=== PATIENT | male | born 1945 | race Caucasian/White ===

== ENCOUNTER 2024-01-22 09:56 | Emergency (ER) | payer BC, MEDICARE ==
[2024-01-22 10:50] LABS: HEMATOCRIT 32.9 % (42.0-52.0); HEMOGLOBIN 10.3 gm/dl (14.0-18.0); MEAN CORPUSCULAR HEMOGLOBIN 27.2 pg (28.0-32.0); MEAN CORPUSCULAR HGB CONC 31.3 g/dl (32.0-36.0); MEAN CORPUSCULAR VOLUME 86.8 fl (83.0-99.0); NRBC ABSOLUTE 2.43 (0.00-0.02); NRBC PERCENT 3.9 % (0.0-0.2); PLATELET COUNT,PLT 35 K/mm3 (150-400); RED BLOOD CELL COUNT 3.79 M/mm3 (4.52-5.90)
[2024-01-22 10:51] LABS: WHITE BLOOD CELL COUNT,WBC 62.86 K/mm3 (3.9-11.3)
[2024-01-22 11:06] LABS: A/G RATIO 0.9 (1-2); ALBUMIN 3.3 g/dl (3.4-5.0); ANION GAP 15.4 (5-15); BILIRUBIN TOTAL 0.8 mg/dL (0.2-1.0); BUN/CREATININE RATIO 21.8 (14-18); CALCIUM 8.8 mg/dL (8.5-10.1); CREATININE 1.1 mg/dL (0.7-1.3); EST CRCL DRUG DOSING (CG) 64.66 mL/min; POTASSIUM,K 4.4 mEq/L (3.5-5.1)
[2024-01-22] MEDS: Sodium Chloride 0.9% 10 ML Syringe FLUSH PRN (11:07)
[2024-01-22 11:12] LABS: BAND PERCENT MAN 12 % (0-10); BASOPHILS PERCENT MAN 1 (0.2-1.2); BLASTS PERCENT MAN 3; EOSINOPHILS PERCENT MAN 1 % (0.8-7.0); LYMPHOCYTES % ATYPICAL MANUAL 0 %; LYMPHOCYTES PERCENT MAN 7 % (20-40); METAMYELOCYTE PERCENT MAN 10; MONOCYTES PERCENT MAN 4 % (2-10); MYELOCYTE PERCENT MAN 18; PROMYELOCYTE PERCENT MAN 4
[2024-01-22 11:16] LABS: ANISOCYTOSIS 2+ MODERATE; OVALOCYTES 1+ SLIGHT; PLATELET COUNT ESTIMATE DECREASED; POLYCHROMASIA 1+ SLIGHT
[2024-01-22] MEDS: Iopamidol 755 Mg/ML 100 ML Bottle IVPUSH ONE (11:16)
[2024-01-22] MEDS: Sodium Chloride 0.9% 100 ML IV SCH (11:16)
== END 2024-01-22 12:58 | disposition home or self-care (01) ==
LOC: JD.ED 09:56
DX: R06.02 Shortness of breath (principal); Z88.6 Allergy status to analgesic agent; Z79.899 Other long term (current) drug therapy
CPT/HCPCS: 36415; 71045; 71275; 80053; 83880; 84484; 85007; 85027; 93005; 99285; J3490; Q9967

== ENCOUNTER 2024-09-06 09:29 | Emergency (ER) | payer MEDICARE ==
[2024-09-06 10:57] LABS: BASOPHILS PERCENT AUTO 0.9 % (0.0-1.0); EOSINOPHILS ABSOLUTE AUTO 1.2 K/mm3 (0.0-0.4); HEMATOCRIT 42.8 % (42.0-52.0); IMMATURE GRAN ABSOLUTE AUTO 29.81 K/mm3 (0.00-0.05); IMMATURE GRAN PERCENT AUTO 25.6 % (0.0-0.4); LYMPHOCYTES ABSOLUTE AUTO 2.4 K/mm3 (1.0-4.8); MEAN CORPUSCULAR HEMOGLOBIN 25.3 pg (28.0-32.0); MEAN CORPUSCULAR HGB CONC 30.6 g/dl (32.0-36.0); MONOCYTES ABSOLUTE AUTO 5.2 K/mm3 (0.0-0.8); MONOCYTES PERCENT AUTO 4.5 % (0.0-8.0); NEUTROPHILS ABSOLUTE AUTO 77.1 K/mm3 (1.8-7.7); NRBC ABSOLUTE 0.92 (0.00-0.02); NRBC PERCENT 0.8 % (0.0-0.2); RED BLOOD CELL COUNT 5.17 M/mm3 (4.52-5.90)
[2024-09-06 11:04] LABS: WHITE BLOOD CELL COUNT,WBC 116.64 K/mm3 (3.9-11.3)
[2024-09-06 11:05] LABS: HEMOGLOBIN 13.1 gm/dl (14.0-18.0); MEAN CORPUSCULAR VOLUME 82.8 fl (83.0-99.0); PLATELET COUNT,PLT 21 K/mm3 (150-400)
[2024-09-06 11:07] LABS: INR 1.17; PROTHROMBIN TIME 12.3 SECONDS (9.7-12.0)
[2024-09-06 11:08] LABS: PTT,PARTIAL THROMBOPLSTIN TIME 29.9 SECONDS (21.7-31.4)
[2024-09-06 11:16] LABS: A/G RATIO 0.8 (1-2); ALBUMIN 2.9 g/dl (3.4-5.0); ANION GAP 12.2 (5-15); BILIRUBIN TOTAL 0.6 mg/dL (0.2-1.0); CALCIUM 8.7 mg/dL (8.5-10.1); CREATININE 1.2 mg/dL (0.7-1.3); EST CRCL DRUG DOSING (CG) 59.27 mL/min; POTASSIUM,K 5.2 mEq/L (3.5-5.1); PROTEIN TOTAL,TP 6.5 g/dl (6.4-8.2)
[2024-09-06 11:43] LABS: SLIDE REVIEW ABNORMAL SMEAR
== END 2024-09-06 13:41 | disposition home or self-care (01) ==
LOC: JD.ED 09:29
DX: I82.412 Acute embolism and thrombosis of left femoral vein (principal); Z88.8 Allergy status to other drugs, medicaments and biological substances
CPT/HCPCS: 36415; 73630-26-LT; 73630-LT; 80053; 85025; 85610; 85730; 93971-26-LT; 93971-LT; 99284

== ENCOUNTER 2025-01-10 16:11 | Inpatient (IN) | payer MEDICARE ==
[2025-01-10] MEDS: Sodium Chloride 0.9% 10 ML Syringe FLUSH PRN (16:40)
[2025-01-10] MEDS: Sodium Chloride 0.9% 1,000 ML IV SCH (17:05)
[2025-01-10 17:07] LABS: BASOPHILS ABSOLUTE AUTO 0.5 K/mm3 (0.0-0.2); BASOPHILS PERCENT AUTO 0.5 % (0.0-1.0); EOSINOPHILS ABSOLUTE AUTO 0.7 K/mm3 (0.0-0.4); EOSINOPHILS PERCENT AUTO 0.8 % (0.0-6.0); HEMATOCRIT 41.7 % (42.0-52.0); HEMOGLOBIN 12.8 gm/dl (14.0-18.0); IMMATURE GRAN ABSOLUTE AUTO 23.25 K/mm3 (0.00-0.05); IMMATURE GRAN PERCENT AUTO 25.5 % (0.0-0.4); LYMPHOCYTES ABSOLUTE AUTO 4.1 K/mm3 (1.0-4.8); LYMPHOCYTES PERCENT AUTO 4.5 % (24.0-44.0); MEAN CORPUSCULAR HEMOGLOBIN 24.9 pg (28.0-32.0); MEAN CORPUSCULAR HGB CONC 30.7 g/dl (32.0-36.0); MONOCYTES ABSOLUTE AUTO 3.7 K/mm3 (0.0-0.8); MONOCYTES PERCENT AUTO 4.1 % (0.0-8.0); NEUTROPHILS ABSOLUTE AUTO 58.9 K/mm3 (1.8-7.7); NEUTROPHILS PERCENT AUTO 64.6 % (41.0-71.0); NRBC ABSOLUTE 13.15 (0.00-0.02); NRBC PERCENT 14.4 % (0.0-0.2); PLATELET COUNT,PLT 35 K/mm3 (150-400); RED BLOOD CELL COUNT 5.15 M/mm3 (4.52-5.90)
[2025-01-10 17:25] LABS: WHITE BLOOD CELL COUNT,WBC 91.12 K/mm3 (3.9-11.3)
[2025-01-10] MEDS: Acetaminophen 325 MG Tab PO ONE (17:27)
[2025-01-10 17:32] LABS: LACTIC ACID 2.6 mmol/L (0.4-2.0)
[2025-01-10 17:36] LABS: A/G RATIO 0.8 (1-2); ALBUMIN 2.6 g/dl (3.4-5.0); BILIRUBIN TOTAL 2.6 mg/dL (0.2-1.0); BUN/CREATININE RATIO 13.3 (14-18); C-REACTIVE PROTEIN 2.92 mg/dL (<0.30); CREATININE 0.9 mg/dL (0.7-1.3); EST CRCL DRUG DOSING (CG) 77.69 mL/min; MAGNESIUM 1.6 mg/dL (1.8-2.4); PROTEIN TOTAL,TP 5.8 g/dl (6.4-8.2)
[2025-01-10 17:59] LABS: CORONAVIRUS COVID-19 NAA NEGATIVE (NEGATIVE); INFLUENZA A NAA NEGATIVE (NEGATIVE); RESPIRATORY SYNCYTIAL VIR NAA NEGATIVE (NEGATIVE)
[2025-01-10] MEDS: Iopamidol 612 MG/ML 100 ML Bottle IVPUSH ONE (18:29)
[2025-01-10] MEDS: Piperacillin/Tazobactam 4.5 GM in Sodium Chloride 0.9% 100 ML IV ONE (18:43)
[2025-01-10 20:09] LABS: APPEARANCE,URINE CLEAR (Clear); BILIRUBIN,URINE 1+ (Negative); COLOR,URINE YELLOW (Yellow); GLUCOSE,URINE NEGATIVE (Negative); KETONES,URINE NEGATIVE (Negative); LEUKOCYTE ESTERASE,URINE NEGATIVE (Negative); NITRITE,URINE NEGATIVE (Negative); OCCULT BLOOD,URINE NEGATIVE (Negative); PROTEIN,URINE 1+ (Negative); UROBILINOGEN,URINE 0.2 (0.2-1.0)
[2025-01-10 20:39] LABS: AMORPHOUS SEDIMENT,URINE RARE /hpf (NOT SEEN); BACTERIA,URINE FEW /hpf (FEW); EPITHELIAL CELLS,URINE 0-5 /hpf (0-5); MUCUS,URINE FEW /hpf (FEW); RBC,URINE 0-5 /hpf (0-5); WBC,URINE 0-5 /hpf (0-5)
[2025-01-10] MEDS: Ondansetron 4 MG/2 ML SDV IVPUSH ONE (20:55)
[2025-01-10] MEDS: Tamsulosin 0.4 MG Cap.ER PO ONE (20:55)
[2025-01-10] MEDS: Piperacillin/Tazobactam 4.5 GM in Sodium Chloride 0.9% 100 ML IV SCH ×2 (23:21→23:44)
[2025-01-11] MEDS ORDERED: Piperacillin/Tazobactam 4.5 GM in Sodium Chloride 0.9% 100 ML IV SCH (02:30)
[2025-01-11 04:41] LABS: BASOPHILS ABSOLUTE AUTO 0.4 K/mm3 (0.0-0.2); BASOPHILS PERCENT AUTO 0.7 % (0.0-1.0); EOSINOPHILS ABSOLUTE AUTO 0.4 K/mm3 (0.0-0.4); EOSINOPHILS PERCENT AUTO 0.7 % (0.0-6.0); HEMATOCRIT 31.6 % (42.0-52.0); HEMOGLOBIN 9.7 gm/dl (14.0-18.0); IMMATURE GRAN PERCENT AUTO 21.4 % (0.0-0.4); LYMPHOCYTES ABSOLUTE AUTO 2.5 K/mm3 (1.0-4.8); LYMPHOCYTES PERCENT AUTO 4.7 % (24.0-44.0); MEAN CORPUSCULAR HEMOGLOBIN 24.8 pg (28.0-32.0); MEAN CORPUSCULAR HGB CONC 30.7 g/dl (32.0-36.0); MEAN CORPUSCULAR VOLUME 80.8 fl (83.0-99.0); MONOCYTES ABSOLUTE AUTO 3.6 K/mm3 (0.0-0.8); MONOCYTES PERCENT AUTO 6.7 % (0.0-8.0); NEUTROPHILS ABSOLUTE AUTO 35.5 K/mm3 (1.8-7.7); NEUTROPHILS PERCENT AUTO 65.8 % (41.0-71.0); NRBC ABSOLUTE 4.76 (0.00-0.02); NRBC PERCENT 8.8 % (0.0-0.2); RED BLOOD CELL COUNT 3.91 M/mm3 (4.52-5.90)
[2025-01-11 05:32] LABS: A/G RATIO 0.8 (1-2); ALBUMIN 2.1 g/dl (3.4-5.0); ANION GAP 11.7 (5-15); BILIRUBIN TOTAL 2.3 mg/dL (0.2-1.0); BUN/CREATININE RATIO 15.6 (14-18); CALCIUM 7.9 mg/dL (8.5-10.1); CREATININE 0.9 mg/dL (0.7-1.3); EST CRCL DRUG DOSING (CG) 77.69 mL/min; POTASSIUM,K 3.7 mEq/L (3.5-5.1); PROTEIN TOTAL,TP 4.8 g/dl (6.4-8.2)
[2025-01-11 06:56] LABS: PLATELET COUNT,PLT 24 K/mm3 (150-400); WHITE BLOOD CELL COUNT,WBC 53.85 K/mm3 (3.9-11.3)
[2025-01-11 07:45] LABS: SLIDE REVIEW ABNORMAL SMEAR
[2025-01-11] MEDS: Furosemide 40 MG/4 ML VIAL IVPUSH ONE (10:07)
[2025-01-11] MEDS ORDERED: Acetaminophen 325 MG Tab PO PRN (10:14)
[2025-01-11] MEDS ORDERED: Ondansetron 4 MG/2 ML SDV IVPUSH PRN (10:15)
[2025-01-12 04:47] LABS: BASOPHILS ABSOLUTE AUTO 1.4 K/mm3 (0.0-0.2); BASOPHILS PERCENT AUTO 2.1 % (0.0-1.0); EOSINOPHILS ABSOLUTE AUTO 0.6 K/mm3 (0.0-0.4); EOSINOPHILS PERCENT AUTO 0.9 % (0.0-6.0); HEMATOCRIT 35.9 % (42.0-52.0); HEMOGLOBIN 10.8 gm/dl (14.0-18.0); IMMATURE GRAN ABSOLUTE AUTO 15.57 K/mm3 (0.00-0.05); IMMATURE GRAN PERCENT AUTO 23.9 % (0.0-0.4); LYMPHOCYTES ABSOLUTE AUTO 3.3 K/mm3 (1.0-4.8); LYMPHOCYTES PERCENT AUTO 5.1 % (24.0-44.0); MEAN CORPUSCULAR HEMOGLOBIN 24.2 pg (28.0-32.0); MEAN CORPUSCULAR HGB CONC 30.1 g/dl (32.0-36.0); MEAN CORPUSCULAR VOLUME 80.5 fl (83.0-99.0); MONOCYTES ABSOLUTE AUTO 3.1 K/mm3 (0.0-0.8); MONOCYTES PERCENT AUTO 4.8 % (0.0-8.0); NEUTROPHILS ABSOLUTE AUTO 41.3 K/mm3 (1.8-7.7); NEUTROPHILS PERCENT AUTO 63.2 % (41.0-71.0); NRBC ABSOLUTE 5.11 (0.00-0.02); NRBC PERCENT 7.8 % (0.0-0.2); PLATELET COUNT,PLT 26 K/mm3 (150-400); RED BLOOD CELL COUNT 4.46 M/mm3 (4.52-5.90)
[2025-01-12 05:18] LABS: A/G RATIO 0.9 (1-2); ALBUMIN 2.4 g/dl (3.4-5.0); ANION GAP 12.6 (5-15); BILIRUBIN TOTAL 2.6 mg/dL (0.2-1.0); CALCIUM 7.9 mg/dL (8.5-10.1); EST CRCL DRUG DOSING (CG) 69.92 mL/min; MAGNESIUM 1.7 mg/dL (1.8-2.4); POTASSIUM,K 3.6 mEq/L (3.5-5.1); PROTEIN TOTAL,TP 5.2 g/dl (6.4-8.2)
[2025-01-12] MEDS: Loperamide 2 MG Cap PO PRN (05:22)
[2025-01-12 06:10] LABS: WHITE BLOOD CELL COUNT,WBC 65.25 K/mm3 (3.9-11.3)
[2025-01-12 07:37] LABS: SLIDE REVIEW ABNORMAL SMEAR
[2025-01-12] MEDS: Magnesium Sulf/Wat 2 GM/50 mL 2 GM/50 ML BAG IV SCH (07:39)
[2025-01-12] MEDS ORDERED: Finasteride 5 MG Tab PO SCH (21:00)
[2025-01-12] MEDS ORDERED: Tamsulosin 0.4 MG Cap.ER PO SCH (21:00)
== END 2025-01-12 14:59 | disposition home or self-care (01) | DRG 864 ==
LOC: JD.ED 16:11 → JD.MS 20:28
PROVIDERS: ADMIT Internal Medicine; ATTEND Internal Medicine
DX: R50.9 Fever, unspecified (principal); D84.9 Immunodeficiency, unspecified; D75.81 Myelofibrosis; D69.6 Thrombocytopenia, unspecified; N40.0 Benign prostatic hyperplasia without lower urinary tract symptoms; R16.1 Splenomegaly, not elsewhere classified; Z66 Do not resuscitate; I10 Essential (primary) hypertension; D64.9 Anemia, unspecified; K80.20 Calculus of gallbladder without cholecystitis without obstruction; M19.90 Unspecified osteoarthritis, unspecified site; N20.0 Calculus of kidney; Z85.6 Personal history of leukemia; Z90.49 Acquired absence of other specified parts of digestive tract; Z98.890 Other specified postprocedural states; Z96.649 Presence of unspecified artificial hip joint; R19.7 Diarrhea, unspecified; Z79.899 Other long term (current) drug therapy; Z86.718 Personal history of other venous thrombosis and embolism; Z88.6 Allergy status to analgesic agent; Z88.8 Allergy status to other drugs, medicaments and biological substances
CPT/HCPCS: 0241U; 36415; 71045; 74177; 76705; 80053; 81001; 83605; 83690; 83735; 83880; 85025; 86140; 86850; 86900; 86901; 87040; 93005; 93306; 96361; 96365; 97110; 97116; 97161; 97530; 99285; 93010; 99284; A9270-GY; J1940; J2405; J2543; J3475; J7030; Q9967

== ENCOUNTER 2025-02-06 15:00 | Inpatient (IN) | payer MEDICARE ==
[2025-02-06 16:23] LABS: HEMATOCRIT 43.5 % (42.0-52.0); HEMOGLOBIN 12.5 gm/dl (14.0-18.0); MEAN CORPUSCULAR HEMOGLOBIN 24.9 pg (28.0-32.0); MEAN CORPUSCULAR HGB CONC 28.7 g/dl (32.0-36.0); MEAN CORPUSCULAR VOLUME 86.5 fl (83.0-99.0); NRBC ABSOLUTE 19.66 (0.00-0.02); NRBC PERCENT 13.3 % (0.0-0.2); PLATELET COUNT,PLT 33 K/mm3 (150-400); RED BLOOD CELL COUNT 5.03 M/mm3 (4.52-5.90)
[2025-02-06 16:45] LABS: APPEARANCE,URINE SLT CLOUDY (Clear); BILIRUBIN,URINE 1+ (Negative); COLOR,URINE AMBER (Yellow); GLUCOSE,URINE NEGATIVE (Negative); KETONES,URINE NEGATIVE (Negative); LEUKOCYTE ESTERASE,URINE 2+ (Negative); NITRITE,URINE POSITIVE (Negative); OCCULT BLOOD,URINE 2+ (Negative); PH,URINE 5.5 (5.0-8.0); PROTEIN,URINE 1+ (Negative); UROBILINOGEN,URINE 0.2 (0.2-1.0)
[2025-02-06 16:57] LABS: WHITE BLOOD CELL COUNT,WBC 148.23 K/mm3 (3.9-11.3)
[2025-02-06 17:05] LABS: A/G RATIO 0.8 (1-2); ALANINE AMINOTRANSFERASE,ALT 24 U/L (16-63); ALBUMIN 2.4 g/dl (3.4-5.0); ALKALINE PHOSPHATASE 296 U/L (46-116); ANION GAP 13.7 (5-15); ASPARTATE AMNIOTRANSFERASE,AST 56 U/L (15-37); BLOOD UREA NITROGEN,BUN 20 mg/dL (7-18); BUN/CREATININE RATIO 18.2 (14-18); CARBON DIOXIDE,CO2 22 mEq/L (21-32); CHLORIDE,CL 107 mEq/L (98-107); CREATININE 1.1 mg/dL (0.7-1.3); EST CRCL DRUG DOSING (CG) 63.57 mL/min; ESTIMATED GFR 67 mL/min (>60); GLUCOSE RANDOM 106 mg/dL (70-99); LIPASE 13 U/L (16-77); POTASSIUM,K 3.7 mEq/L (3.5-5.1); PROTEIN TOTAL,TP 5.3 g/dl (6.4-8.2); SODIUM,NA 139 mEq/L (136-145)
[2025-02-06 17:14] LABS: CALCIUM 8.2 mg/dL (8.5-10.1)
[2025-02-06] MEDS ORDERED: Metoprolol Tartrate 5 MG/5 ML SDV IVPUSH PRN (17:14)
[2025-02-06] MEDS ORDERED: Ondansetron 4 MG/2 ML SDV IV PRN (17:16)
[2025-02-06] MEDS ORDERED: Sennosides/Docusate Sodium 50-8.6 MG Tab PO PRN (17:16)
[2025-02-06] MEDS ORDERED: Morphine 2 MG/ML SYRINGE IVPUSH PRN (17:16)
[2025-02-06] MEDS ORDERED: oxyCODONE 5 MG Tab PO PRN (17:16)
[2025-02-06 17:22] LABS: WBC,URINE 30-40 /hpf (0-5)
[2025-02-06 17:23] LABS: BACTERIA,URINE MODERATE /hpf (FEW); MUCUS,URINE MODERATE /hpf (FEW); WAXY CASTS,URINE 0-5 /lpf (0-5); WBC CLUMPS,URINE MODERATE /hpf (NOT SEEN)
[2025-02-06] MEDS: Piperacillin/Tazobactam 4.5 GM in Sodium Chloride 0.9% 100 ML IV ONE ×2 (17:23→19:50)
[2025-02-06] MEDS: VANCOmycin 2 GM/400 ML 2 GM in Premix Bag 1 BAG IV ONE (17:28)
[2025-02-06 17:29] LABS: TROPONIN I HIGH SENSITIVITY < 4 pg/mL (<=76)
[2025-02-06 17:32] LABS: C-REACTIVE PROTEIN 2.25 mg/dL (<0.30)
[2025-02-06] MEDS ORDERED: LORazepam 2 MG/ML SDV IVPUSH PRN (17:33)
[2025-02-06] MEDS ORDERED: 50% Dextrose in Water 50 ML Syringe IVPUSH PRN (17:35)
[2025-02-06 17:52] LABS: BAND PERCENT MAN 23 % (0-10); LYMPHOCYTES PERCENT MAN 4 % (20-40)
[2025-02-06 17:53] LABS: BASOPHILS PERCENT MAN 4 (0.2-1.2); EOSINOPHILS PERCENT MAN 1 % (0.8-7.0)
[2025-02-06 17:54] LABS: ANISOCYTOSIS 2+ MODERATE; GIANT PLATELETS FEW; MONOCYTES PERCENT MAN 6 % (2-10); PLATELET COUNT ESTIMATE MARKED DEC; POIKILOCYTOSIS 2+ MODERATE
[2025-02-06] MEDS: Sodium Chloride 0.9% 1,000 ML IV ONE (18:00)
[2025-02-06] MEDS: VANCOmycin 1.75 GM/350 ML 1.75 GM in Premix Bag 1 BAG IV ONE (19:50)
[2025-02-06 20:27] LABS: LACTIC ACID 2.3 mmol/L (0.4-2.0)
[2025-02-06] MEDS: Tamsulosin 0.4 MG Cap.ER PO SCH (21:05)
[2025-02-06] MEDS: Finasteride 5 MG Tab PO SCH (21:05)
[2025-02-06] MEDS: Famotidine 20 MG/2 ML SDV IVPUSH SCH (21:06)
[2025-02-06] MEDS: Potassium Chloride 20 MEQ Tab.ER PO ONE (21:06)
[2025-02-06] MEDS: Piperacillin/Tazobactam 4.5 GM in Sodium Chloride 0.9% 100 ML IV SCH (23:09)
[2025-02-06] MEDS: Insulin Lispro 100 Unit/ML 3 ML KwikPen SUBCUT SCH (23:09)
[2025-02-07] MEDS: Fluconazole/Normal Saline 200 MG in Premix Bag 1 BAG IV ONE (01:15)
[2025-02-07] MEDS: Sodium Chloride 0.9% 3,000 ML IV ONE (01:15)
[2025-02-07] MEDS: VANCOmycin 1.5 GM/300 ML 1.5 GM in Premix Bag 1 BAG IV SCH (04:20)
[2025-02-07 04:38] LABS: BASOPHILS ABSOLUTE AUTO 2.9 K/mm3 (0.0-0.2); BASOPHILS PERCENT AUTO 2.3 % (0.0-1.0); EOSINOPHILS PERCENT AUTO 1.6 % (0.0-6.0); HEMATOCRIT 38.3 % (42.0-52.0); HEMOGLOBIN 11.2 gm/dl (14.0-18.0); IMMATURE GRAN ABSOLUTE AUTO 30.86 K/mm3 (0.00-0.05); IMMATURE GRAN PERCENT AUTO 24.4 % (0.0-0.4); LYMPHOCYTES PERCENT AUTO 3.9 % (24.0-44.0); MEAN CORPUSCULAR HEMOGLOBIN 24.7 pg (28.0-32.0); MEAN CORPUSCULAR HGB CONC 29.2 g/dl (32.0-36.0); MEAN CORPUSCULAR VOLUME 84.4 fl (83.0-99.0); MONOCYTES ABSOLUTE AUTO 8.2 K/mm3 (0.0-0.8); MONOCYTES PERCENT AUTO 6.5 % (0.0-8.0); NEUTROPHILS ABSOLUTE AUTO 77.5 K/mm3 (1.8-7.7); NEUTROPHILS PERCENT AUTO 61.3 % (41.0-71.0); NRBC ABSOLUTE 16.56 (0.00-0.02); NRBC PERCENT 13.1 % (0.0-0.2); RED BLOOD CELL COUNT 4.54 M/mm3 (4.52-5.90)
[2025-02-07 05:11] LABS: A/G RATIO 0.8 (1-2); ANION GAP 12.3 (5-15); BUN/CREATININE RATIO 17.3 (14-18); C-REACTIVE PROTEIN 2.07 mg/dL (<0.30); CALCIUM 7.8 mg/dL (8.5-10.1); CREATININE 1.1 mg/dL (0.7-1.3); EST CRCL DRUG DOSING (CG) 63.57 mL/min; MAGNESIUM 1.8 mg/dL (1.8-2.4); PHOSPHORUS 2.9 mg/dL (2.6-4.7); POTASSIUM,K 4.3 mEq/L (3.5-5.1); PROTEIN TOTAL,TP 4.5 g/dl (6.4-8.2)
[2025-02-07 05:22] LABS: INR 1.47; PROTHROMBIN TIME 15.2 SECONDS (9.7-12.0)
[2025-02-07 06:10] LABS: PLATELET COUNT,PLT 25 K/mm3 (150-400); WHITE BLOOD CELL COUNT,WBC 126.45 K/mm3 (3.9-11.3)
[2025-02-07 06:51] LABS: SLIDE REVIEW ABNORMAL SMEAR
[2025-02-07] MEDS: Magnesium Sulfat/D5W 1GM/100ML 1 GM in Premix Bag 1 BAG IV ONE (11:14)
[2025-02-07] MEDS: Furosemide 20 MG/2 ML VIAL IVPUSH ONE (11:24)
[2025-02-07] MEDS: Sodium Phosphate 30 MMOLE in Sodium Chloride 0.9% 250 ML IV ONE (11:24)
[2025-02-07] MEDS: Loperamide 2 MG Cap PO ONE (15:11)
[2025-02-07] MEDS ORDERED: Meloxicam 7.5 MG Tab PO PRN (17:35)
[2025-02-07] MEDS: Melatonin 3 MG Tab PO SCH (20:08)
[2025-02-08 05:00] LABS: BASOPHILS ABSOLUTE AUTO 3.1 K/mm3 (0.0-0.2); BASOPHILS PERCENT AUTO 2.3 % (0.0-1.0); EOSINOPHILS ABSOLUTE AUTO 1.7 K/mm3 (0.0-0.4); EOSINOPHILS PERCENT AUTO 1.3 % (0.0-6.0); HEMATOCRIT 36.7 % (42.0-52.0); HEMOGLOBIN 10.7 gm/dl (14.0-18.0); IMMATURE GRAN ABSOLUTE AUTO 32.34 K/mm3 (0.00-0.05); IMMATURE GRAN PERCENT AUTO 24.1 % (0.0-0.4); LYMPHOCYTES PERCENT AUTO 4.5 % (24.0-44.0); MEAN CORPUSCULAR HEMOGLOBIN 25.1 pg (28.0-32.0); MEAN CORPUSCULAR HGB CONC 29.2 g/dl (32.0-36.0); MEAN CORPUSCULAR VOLUME 86.2 fl (83.0-99.0); MONOCYTES ABSOLUTE AUTO 7.1 K/mm3 (0.0-0.8); MONOCYTES PERCENT AUTO 5.3 % (0.0-8.0); NEUTROPHILS PERCENT AUTO 62.5 % (41.0-71.0); NRBC ABSOLUTE 16.98 (0.00-0.02); NRBC PERCENT 12.7 % (0.0-0.2); RED BLOOD CELL COUNT 4.26 M/mm3 (4.52-5.90)
[2025-02-08 05:33] LABS: WHITE BLOOD CELL COUNT,WBC 134.18 K/mm3 (3.9-11.3)
[2025-02-08 05:34] LABS: PLATELET COUNT,PLT 25 K/mm3 (150-400)
[2025-02-08 05:36] LABS: A/G RATIO 0.8 (1-2); ALBUMIN 1.9 g/dl (3.4-5.0); ANION GAP 11.5 (5-15); BILIRUBIN TOTAL 2.8 mg/dL (0.2-1.0); BUN/CREATININE RATIO 16.7 (14-18); C-REACTIVE PROTEIN 1.94 mg/dL (<0.30); CALCIUM 7.6 mg/dL (8.5-10.1); CREATININE 1.2 mg/dL (0.7-1.3); EST CRCL DRUG DOSING (CG) 58.27 mL/min; PHOSPHORUS 3.8 mg/dL (2.6-4.7); POTASSIUM,K 3.5 mEq/L (3.5-5.1); PROTEIN TOTAL,TP 4.4 g/dl (6.4-8.2)
[2025-02-08 05:39] LABS: SLIDE REVIEW ABNORMAL SMEAR
[2025-02-08] MEDS: Furosemide 40 MG/4 ML VIAL IVPUSH ONE (12:40)
[2025-02-08] MEDS: Loperamide 2 MG Cap PO PRN (12:57)
[2025-02-09] MEDS: Furosemide 40 MG/4 ML VIAL IVPUSH ONE (09:06)
[2025-02-09 09:10] LABS: BASOPHILS ABSOLUTE AUTO 4.8 K/mm3 (0.0-0.2); BASOPHILS PERCENT AUTO 2.9 % (0.0-1.0); EOSINOPHILS ABSOLUTE AUTO 29.6 K/mm3 (0.0-0.4); EOSINOPHILS PERCENT AUTO 17.8 % (0.0-6.0); HEMOGLOBIN 12.1 gm/dl (14.0-18.0); IMMATURE GRAN ABSOLUTE AUTO 36.23 K/mm3 (0.00-0.05); IMMATURE GRAN PERCENT AUTO 21.8 % (0.0-0.4); LYMPHOCYTES ABSOLUTE AUTO 6.9 K/mm3 (1.0-4.8); LYMPHOCYTES PERCENT AUTO 4.1 % (24.0-44.0); MEAN CORPUSCULAR HEMOGLOBIN 25.5 pg (28.0-32.0); MEAN CORPUSCULAR HGB CONC 29.5 g/dl (32.0-36.0); MEAN CORPUSCULAR VOLUME 86.3 fl (83.0-99.0); MONOCYTES ABSOLUTE AUTO 11.1 K/mm3 (0.0-0.8); MONOCYTES PERCENT AUTO 6.7 % (0.0-8.0); NEUTROPHILS ABSOLUTE AUTO 77.8 K/mm3 (1.8-7.7); NEUTROPHILS PERCENT AUTO 46.7 % (41.0-71.0); NRBC PERCENT 12.7 % (0.0-0.2); PLATELET COUNT,PLT 30 K/mm3 (150-400); RED BLOOD CELL COUNT 4.75 M/mm3 (4.52-5.90)
[2025-02-09 09:13] LABS: WHITE BLOOD CELL COUNT,WBC 166.35 K/mm3 (3.9-11.3)
[2025-02-09 09:40] LABS: A/G RATIO 0.7 (1-2); ALBUMIN 2.1 g/dl (3.4-5.0); BILIRUBIN TOTAL 2.9 mg/dL (0.2-1.0); BUN/CREATININE RATIO 14.6 (14-18); CREATININE 1.3 mg/dL (0.7-1.3); EST CRCL DRUG DOSING (CG) 53.79 mL/min
[2025-02-09 09:49] LABS: SLIDE REVIEW ABNORMAL SMEAR
[2025-02-09] MEDS: cefTRIAXone 1 GM Vial IVPUSH SCH (16:35)
[2025-02-09] MEDS: Acetaminophen 325 MG Tab PO PRN (20:23)
[2025-02-10] MEDS: Furosemide 40 MG Tab PO SCH (08:26)
[2025-02-10 08:38] LABS: BASOPHILS ABSOLUTE AUTO 4.5 K/mm3 (0.0-0.2); BASOPHILS PERCENT AUTO 2.9 % (0.0-1.0); EOSINOPHILS PERCENT AUTO 1.3 % (0.0-6.0); HEMATOCRIT 40.3 % (42.0-52.0); HEMOGLOBIN 11.6 gm/dl (14.0-18.0); IMMATURE GRAN ABSOLUTE AUTO 36.56 K/mm3 (0.00-0.05); IMMATURE GRAN PERCENT AUTO 23.3 % (0.0-0.4); LYMPHOCYTES ABSOLUTE AUTO 6.7 K/mm3 (1.0-4.8); LYMPHOCYTES PERCENT AUTO 4.3 % (24.0-44.0); MEAN CORPUSCULAR HEMOGLOBIN 25.1 pg (28.0-32.0); MEAN CORPUSCULAR HGB CONC 28.8 g/dl (32.0-36.0); NEUTROPHILS ABSOLUTE AUTO 96.3 K/mm3 (1.8-7.7); NEUTROPHILS PERCENT AUTO 61.2 % (41.0-71.0); NRBC ABSOLUTE 20.75 (0.00-0.02); NRBC PERCENT 13.2 % (0.0-0.2); PLATELET COUNT,PLT 28 K/mm3 (150-400); RED BLOOD CELL COUNT 4.63 M/mm3 (4.52-5.90)
[2025-02-10 08:47] LABS: WHITE BLOOD CELL COUNT,WBC 157.11 K/mm3 (3.9-11.3)
[2025-02-10 09:08] LABS: ANION GAP 12.6 (5-15); BUN/CREATININE RATIO 16.4 (14-18); CREATININE 1.1 mg/dL (0.7-1.3); EST CRCL DRUG DOSING (CG) 63.57 mL/min; POTASSIUM,K 3.6 mEq/L (3.5-5.1)
[2025-02-10 10:06] LABS: SLIDE REVIEW ABNORMAL SMEAR
[2025-02-10] MEDS: Sodium Chloride 0.9% 250 ML IV ONE (12:54)
== END 2025-02-10 14:05 | disposition home or self-care (01) | DRG 872 ==
LOC: JD.ED 15:00 → JD.MS 17:16
PROVIDERS: ADMIT Student in an Organized Health Care Education/Training Program; ATTEND Family Medicine
DX: A41.9 Sepsis, unspecified organism (principal); A41.51 Sepsis due to Escherichia coli [E. coli]; R60.0 Localized edema; N39.0 Urinary tract infection, site not specified; D72.825 Bandemia; D75.81 Myelofibrosis; I48.92 Unspecified atrial flutter; K76.6 Portal hypertension; R65.20 Severe sepsis without septic shock; Z66 Do not resuscitate; D69.6 Thrombocytopenia, unspecified; I10 Essential (primary) hypertension; N40.0 Benign prostatic hyperplasia without lower urinary tract symptoms; E86.0 Dehydration; I48.91 Unspecified atrial fibrillation; N20.0 Calculus of kidney; M19.90 Unspecified osteoarthritis, unspecified site; D64.9 Anemia, unspecified; Z85.6 Personal history of leukemia; Z90.49 Acquired absence of other specified parts of digestive tract; Z98.890 Other specified postprocedural states; Z96.649 Presence of unspecified artificial hip joint; Z79.01 Long term (current) use of anticoagulants; Z88.8 Allergy status to other drugs, medicaments and biological substances; Z79.899 Other long term (current) drug therapy; Z86.718 Personal history of other venous thrombosis and embolism
CPT/HCPCS: 36415; 51702; 51798; 80048; 80053; 80202; 81001; 82550; 82947; 83605; 83690; 83735; 83880; 84100; 84484; 85007; 85025; 85027; 85610; 86140; 87040; 87086; 87088; 87186; 93005; 93010; 94760; 94761; 97110-GP; 97116-GP; 97161-GP; 97530-GP; 99285; A9270-GY; J0696; J1938; J2543; J3372; J3475; J3490; J7030